=== PATIENT | female | born 1995 | race Caucasian/White ===

== ENCOUNTER 2016-02-22 13:42 | Emergency (ER) | payer BC ==
[2016-02-22 14:23] VITALS: RESP 18; TEMP 98.6
--- NOTE | 2016-02-22 14:46 | ED ---
General Adult HPI - General Chief complaint: Skin/Abscess/Foreign Body Stated complaint: rash on body Time Seen by Provider: 02/22/16 14:26 Source: patient, RN notes reviewed, old records reviewed Mode of arrival: ambulatory Limitations: no limitations - History of Present Illness Initial comments: This is a 20-year-old female here with rash on body. Patient is just recently back from travel to [place] and was rash on anterior thigh, maybe right side of face and neck. Patient has no known sick contacts, does have positive [place] travel history or no fevers. Patient states she otherwise feels fine aside from the rash. The rash is not itchy, with no other specific did no new medications. No change in appetite or is, - Related Data Previous Rx's Medication Instructions Recorded Nystatin/Triamcin 1 applicate TOPICAL BID #1 tube 02/22/16 [Nystatin-Triamcinolone Cream] Allergies Allergy/AdvReac Type Severity Reaction Status Date / Time No Known Allergies Allergy Verified 02/22/16 14:52 Review of Systems ROS Statement: Those systems with pertinent positive or pertinent negative responses have been documented in the HPI. ROS Other: All systems not noted in ROS Statement are negative. Past Medical History Past Medical History: No Reported History History of Any Multi-Drug Resistant Organisms: None Reported Past Surgical History: No Surgical Hx Reported Past Psychological History: No Psychological Hx Reported Smoking Status: Never smoker Past Alcohol Use History: Occasional Past Drug Use History: None Reported General Exam - General Exam Comments Initial Comments: Rashes. Thigh, patient appears to be area where patient would touch with either wringer bracelet Limitations: no limitations General appearance: alert, in no apparent distress Head exam: Present: atraumatic, normocephalic, normal inspection Eye exam: Present: normal appearance, PERRL, EOMI. Absent: scleral icterus, conjunctival injection, periorbital swelling ENT exam: Present: normal exam, mucous membranes moist Neck exam: Present: normal inspection. Absent: tenderness, meningismus, lymphadenopathy Respiratory exam: Present: normal lung sounds bilaterally. Absent: respiratory distress, wheezes, rales, rhonchi, stridor Cardiovascular Exam: Present: regular rate, normal rhythm, normal heart sounds. Absent: systolic murmur, diastolic murmur, rubs, gallop, clicks GI/Abdominal exam: Present: soft, normal bowel sounds. Absent: distended, tenderness, guarding, rebound, rigid Extremities exam: Present: normal inspection, full ROM, normal capillary refill. Absent: tenderness, pedal edema, joint swelling, calf tenderness Back exam: Present: normal inspection Neurological exam: Present: alert, oriented X3, CN II-XII intact Psychiatric exam: Present: normal affect, normal mood Skin exam: Present: warm, dry, intact, normal color. Absent: rash Course Vital Signs 02/22/16 02/22/16 14:18 15:10 Temperature 98.6 F Pulse Rate 89 76 Respiratory 18 18 Rate Blood Pressure 126/71 132/67 O2 Sat by Pulse 100 99 Oximetry Medical Decision Making - Medical Decision Making 20 female ER for evaluation of rash, rash appears to be contact dermatitis in nature. She is in no acute distress, no fevers otherwise feeling appropriate, patient can be discharged home Disposition Clinical Impression: Dermatitis Disposition: HOME SELF-CARE Condition: Good Instructions: Dermatitis (ED) Prescriptions: Nystatin/Triamcin [Nystatin-Triamcinolone Cream] 1 applicate TOPICAL BID #1 tube Referrals: Donn Schmidt MD [Primary Care Provider] - 1-2 days
[2016-02-22 15:11] VITALS: BP 132/67; PULSE 76
== END 2016-02-22 15:11 | disposition home or self-care (01) ==
LOC: EC 13:42
DX: L30.9 Dermatitis, unspecified (principal)
CPT/HCPCS: 99282

== ENCOUNTER 2017-01-07 01:02 | Emergency (ER) | payer BC ==
[2017-01-07 01:09] VITALS: RESP 18
[2017-01-07] MEDS ORDERED: SODIUM CHLORIDE 0.9% 1,000 ML IV STA (01:41)
[2017-01-07] MEDS ORDERED: MAG HYDROX/AL HYDROX/SIMETH 30 ML, HYOSCYAMINE ELIXIR 10 ML, CIMETIDINE HCL 300 MG, LID... PO STA ×4 (01:42)
--- NOTE | 2017-01-07 02:25 | XR ---
EXAMINATION TYPE: XR chest 2V DATE OF EXAM: 01/07/2017 COMPARISON: NONE HISTORY: Chest pain TECHNIQUE: Frontal and lateral views of the chest are obtained. FINDINGS: Heart and mediastinum are normal. Lungs are clear. Diaphragm is normal. Bony thorax appear s normal. IMPRESSION: Normal chest
[2017-01-07 02:28] LABS: Basophils # (A) 0.1 k/uL (0-0.2); Basophils % (A) 1 %; CH 27.6; CHCM 32.2; Eosinophils # (A) 0.4 k/uL (0-0.7); Eosinophils % (A) 5 %; HCT 39.4 % (34.0-46.0); HDW 2.11; HGB 12.6 gm/dL (11.4-16.0); Luc # (Auto) 0.14; Luc % (Auto) 2; Lymphocytes # (A) 2.5 k/uL (1.0-4.8); Lymphocytes % (A) 31 %; MCH 27.6 pg (25.0-35.0); MCV 86.2 fL (80.0-100.0); Mean Platelet Volume 8.8; Monocytes # (A) 0.5 k/uL (0-1.0); Monocytes % (A) 6 %; Neutrophils # (A) 4.4 k/uL (1.3-7.7); Neutrophils % (A) 55 %; RBC 4.58 m/uL (3.80-5.40); RDW 14.8 % (11.5-15.5); WBC 7.9 k/uL (4.0-11.0)
[2017-01-07 02:41] LABS: ALT 27 U/L (9-52); AST 24 U/L (14-36); Alkaline Phosphatase 55 U/L (38-126); Anion Gap 9 mmol/L; Blood Urea Nitrogen 15 mg/dL (7-17); Calcium 9.6 mg/dL (8.4-10.2); Carbon Dioxide 22 mmol/L (22-30); Chloride 106 mmol/L (98-107); Glucose 89 mg/dL (74-99); Magnesium 2.2 mg/dL (1.6-2.3); Non-African American GFR(MDRD) >60 (>60 ml/min/1.73 sqM); Potassium 4.1 mmol/L (3.5-5.1); Sodium 137 mmol/L (137-145); Total Bilirubin 0.4 mg/dL (0.2-1.3); Total Protein 6.7 g/dL (6.3-8.2)
[2017-01-07 02:54] LABS: Creatine Kinase 332 U/L (30-135)
--- NOTE | 2017-01-07 03:03 | ED ---
Chest Pain HPI - General Chief Complaint: Chest Pain Stated Complaint: chest pain Time Seen by Provider: 01/07/17 01:25 Source: patient, RN notes reviewed, old records reviewed Mode of arrival: wheelchair Limitations: no limitations - History of Present Illness Initial Comments: 21-year-old female presents emergency Department chief complaint of chest pain has been intermittent with her she lays down flat sleeping for the past 3 months. She reports the pain seemed to be worse today. She states that the pain slowly subsides after occurs. She denies any nausea or vomiting. She states it seems to be substernal and radiates up her throat. She denies any significant shortness of breath. Patient states that she feels like it'll occasionally feel tight in her chest. Denies any history of anxiety. She states that she is up-to-date on all of her vaccinations. She is home from college when the symptoms started to become worse over the past 1-2 days. Patient denies any recent fever, chills, shortness of breath, back pain, abdominal pain, nausea vomiting, numbness or tingling, dysuria or hematuria, constipation or diarrhea, headaches or visual changes, or any other current symptoms - Related Data Previous Rx's Medication Instructions Recorded Famotidine [Pepcid] 20 mg PO BID #20 tablet 01/07/17 Allergies Allergy/AdvReac Type Severity Reaction Status Date / Time No Known Allergies Allergy Verified 02/22/16 14:52 Review of Systems ROS Statement: Those systems with pertinent positive or pertinent negative responses have been documented in the HPI. ROS Other: All systems not noted in ROS Statement are negative. EKG Findings - EKG Comments: EKG Findings:: EKG shows normal sinus rhythm, ventricular rate 81 bpm. [place] interval 156 most seconds. QRS ration 84 ms. QT QTc is 370/[address] elevation or T-wave inversion. No evidence of atrial or ventricular arrhythmias. Past Medical History Past Medical History: No Reported History History of Any Multi-Drug Resistant Organisms: None Reported Past Surgical History: No Surgical Hx Reported Past Psychological History: No Psychological Hx Reported Smoking Status: Never smoker Past Alcohol Use History: Occasional Past Drug Use History: None Reported General Exam - General Exam Comments Initial Comments: Well appearing 21-year-old female. No distress. Limitations: no limitations General appearance: alert, in no apparent distress Head exam: Present: atraumatic, normocephalic, normal inspection Eye exam: Present: normal appearance, PERRL, EOMI. Absent: scleral icterus, conjunctival injection, periorbital swelling ENT exam: Present: normal exam, mucous membranes moist Neck exam: Present: normal inspection. Absent: tenderness, meningismus, lymphadenopathy Respiratory exam: Present: normal lung sounds bilaterally. Absent: respiratory distress, wheezes, rales, rhonchi, stridor Cardiovascular Exam: Present: regular rate, normal rhythm, normal heart sounds. Absent: systolic murmur, diastolic murmur, rubs, gallop, clicks GI/Abdominal exam: Present: soft, normal bowel sounds. Absent: distended, tenderness, guarding, rebound, rigid Extremities exam: Present: normal inspection, full ROM, normal capillary refill. Absent: tenderness, pedal edema, joint swelling, calf tenderness Back exam: Present: normal inspection Neurological exam: Present: alert, oriented X3, CN II-XII intact Psychiatric exam: Present: normal affect, normal mood Skin exam: Present: warm, dry, intact, normal color. Absent: rash Course Vital Signs 01/07/17 01/07/17 01:05 03:43 Temperature 97.8 F 98.2 F Pulse Rate 80 68 Respiratory 18 18 Rate Blood Pressure 154/91 126/81 O2 Sat by Pulse 100 98 Oximetry - Reevaluation(s) Reevaluation #1: 01/07/17 03:22 is reevaluated and resting upper lip. She reports that her pain is diminished after receiving the GI cocktail. Chest Pain MDM - MDM 21-year-old feel presents emergency Department with intermittent chest pain tightness and sore throat like symptoms whenever she lays down. Patient CT EKG was reviewed and negative for any abnormalities. Chest x-ray reviewed and negative for any acute process.Blood work was obtained all within normal limits. As well as noted. Patient was given GI cocktail as it appears the patient clinically has GERD. Complaint of a burning sensation. At this time patient does feel better after GI cocktail. Patient will be treated for acid reflux with Pepcid. Discussed close follow-up with primary care physician and return parameters were discussed. Discussed I'll discharge the patient with Pepcid as well as discussed avoiding acidic foods and other contributors occurred. Patient agrees to treatment plan. Disposition Clinical Impression: GERD (gastroesophageal reflux disease) Disposition: HOME SELF-CARE Condition: Good Instructions: Diet for Stomach Ulcers and Gastritis (ED), Gastroesophageal Reflux Disease (ED) Additional Instructions: Denies rest, increase fluids. Take the medicine as prescribed. Follow-up with her primary care provider. Return to emergency department if any alarming signs or symptoms occur. Prescriptions: Famotidine [Pepcid] 20 mg PO BID #20 tablet Referrals: Donn Schmidt MD [Primary Care Provider] - 1-2 days Time of Disposition: 03:21
[2017-01-07 03:07] LABS: Troponin I <0.012 ng/mL (0.000-0.034)
[2017-01-07 03:09] LABS: Creatine Kinase MB 2.7 ng/mL (0.0-2.4)
[2017-01-07 03:45] VITALS: BP 126/81; PULSE 68; TEMP 98.2
== END 2017-01-07 03:30 | disposition home or self-care (01) ==
LOC: EC 01:02
DX: K21.9 Gastro-esophageal reflux disease without esophagitis (principal)
CPT/HCPCS: 36415; 71020; 80053; 82550; 82553; 83735; 84484; 85025; 93005; 96360; 99285

== ENCOUNTER → 2017-04-12 | Outpatient (CLI) | payer BC | END | disposition home or self-care (01) | LOC: RADECHMAIN 12:34 | PROVIDERS: ATTEND Family Medicine | DX: R07.9 Chest pain, unspecified (principal) | CPT/HCPCS: 93225; 93226 ==